=== PATIENT | female | born 1945 | race Caucasian/White ===

== ENCOUNTER 2017-10-09 05:59 | Inpatient (IN) | payer MEDICARE, OTHER ==
[~2017-10-09] VITALS: Ht 172.7 cm; Wt 84.8 kg
[2017-10-09] MEDS ORDERED: SODIUM CHLORIDE FLUSH 10ML SYR IVF ONE ×2 (06:30→09:00)
[2017-10-09 06:33] LABS: BASOPHILS # (AUTO) 0.01 x10^3/uL (0-0.1); BASOPHILS % (AUTO) 0 % (0-1); EOSINOPHILS # (AUTO) 0.02 x10^3/uL (0-0.4); EOSINOPHILS % (AUTO) 0 % (1-7); LYMPHOCYTES # (AUTO) 0.63 x10^3/uL (1-3.4); LYMPHOCYTES % (AUTO) 5 % (22-44); MD NO; MEAN CORPUSCULAR HEMOGLOBIN 29.7 pg (27.0-34.8); MEAN CORPUSCULAR HGB CONC 32.8 g/dL (32.4-35.8); MEAN CORPUSCULAR VOLUME 90.7 fL (80-100); MEAN PLATELET VOLUME 7.8 fL (7.4-10.4); MONOCYTES # (AUTO) 0.25 x10^3/uL (0.2-0.8); MONOCYTES % (AUTO) 2 % (2-9); NEUTROPHILS % (AUTO) 93 % (42-75); PLATELET COUNT 190 x10^3/uL (130-400); RED BLOOD COUNT 4.74 x10^6/uL (3.82-5.3); RED CELL DISTRIBUTION WIDTH 14.2 % (9.6-15.2)
[2017-10-09 06:44] LABS: ALANINE AMINOTRANSFERASE 40 U/L (12-78); ALBUMIN 2.3 g/dL (3.4-5.0); ANION GAP 13 mmol/L (5-15); CALCIUM 8.8 mg/dL (8.5-10.1); CHLORIDE 103 mmol/L (98-107); CREATININE 1.25 mg/dL (0.55-1.02)
[2017-10-09 06:48] LABS: ALKALINE PHOSPHATASE 285 U/L (45-117); BILIRUBIN,TOTAL 0.8 mg/dL (0.2-1.0); TOTAL PROTEIN 6.7 g/dL (6.4-8.2); TROPONIN I < 0.015 ng/mL (0.000-0.045)
[2017-10-09 06:57] LABS: INTERNATIONAL NORMALIZED RATIO 1.11 (0.93-1.1); PROTHROMBIN TIME 11.4 Seconds (9.6-11.5)
[2017-10-09] MEDS ORDERED: ONDANSETRON 2MG/ML, 2ML IVP ONE (07:00)
[2017-10-09] MEDS ORDERED: PLEASE ENTER ALLERGIES MC SCH (07:00)
[2017-10-09] MEDS ORDERED: MORPHINE SULFATE 4 MG/ML, 1ML ONE ×2 (07:19→12:35)
[2017-10-09] MEDS ORDERED: ONDANSETRON 2MG/ML, 2ML ONE (07:19)
[2017-10-09] MEDS ORDERED: POTASSIUM CHLORIDE 20 MEQ TAB.ER.PRT ONE (07:19)
[2017-10-09] MEDS ORDERED: POTASSIUM CHLORIDE 20 MEQ TAB.ER.PRT PO ONE ×2 (07:30→09:30)
[2017-10-09] MEDS ORDERED: OMNIPAQUE 350 MG/ML, 100ML BOTTLE ONE (07:41)
[2017-10-09] MEDS ORDERED: METF500T4 PO (07:49)
[2017-10-09] MEDS: MORPHINE SULFATE 4 MG/ML, 1ML IVPush PRN ×2 (07:54→12:38)
[2017-10-09] MEDS ORDERED: CEFTRIAXONE PMX 1GM/50ML 50 ML IVPB ONE (08:30)
[2017-10-09] MEDS ORDERED: AZITHROMYCIN 500 MG in SODIUM CHLORIDE 0.9% 250 ML IVPB ONE (08:30)
[2017-10-09] MEDS ORDERED: ONDANSETRON 2MG/ML, 2ML IVPush PRN (09:30)
[2017-10-09] MEDS ORDERED: CEFTRIAXONE PMX 1GM/50ML 50 ML IV SCH (09:30)
[2017-10-09] MEDS ORDERED: GUAIFENESIN/DM 200-20MG, 10ML UDC PO PRN (09:30)
[2017-10-09] MEDS ORDERED: LORazepam 1MG TABLET PO PRN (09:30)
[2017-10-09] MEDS: SENNA/DOCUSATE TABLET PO SCH (09:30)
[2017-10-09] MEDS ORDERED: DOCUSATE 100 MG CAPSULE PO PRN (09:30)
[2017-10-09] MEDS ORDERED: OXYcodone IR 5MG TABLET PO PRN (09:30)
[2017-10-09] MEDS ORDERED: POLYETHYLENE GLYCOL 17 GM PACKET PO PRN (09:30)
[2017-10-09] MEDS: INSULIN ASPART 100 UNITS/ML, PEN SQ-INSULIN SCH ×3 (11:00→21:00)
[2017-10-09] MEDS ORDERED: FUROSEMIDE 40 MG/4 ML ONE (11:31)
[2017-10-09] MEDS: FUROSEMIDE 40 MG/4 ML IV SCH ×2 (11:45→17:00)
[2017-10-09] MEDS: AZITHROMYCIN 500 MG in SODIUM CHLORIDE 0.9% 250 ML IV SCH (12:26)
[2017-10-09] MEDS ORDERED: ALBUTEROL SULFATE 2.5 MG/3 ML NPPB PRN (16:00)
[2017-10-09] MEDS: morphine SULFATE 10 MG/ML, 1ML IVPush PRN (16:23)
[2017-10-09] MEDS ORDERED: FUROSEMIDE 40 MG/4 ML IV ONE ×2 (17:00→20:30)
[2017-10-09 17:55] LABS: TROPONIN I < 0.015 ng/mL (0.000-0.045)
[2017-10-09 19:35] VITALS: BP_SYST 103; BP_SYST 89; BP_DIAS 37; BP_DIAS 51
[2017-10-09] MEDS: SODIUM CHLORIDE FLUSH 10ML SYR IVF SCH (21:00)
[2017-10-09] MEDS ORDERED: BUMETANIDE 0.25 MG/ML, 4ML IV ONE (21:00)
[2017-10-09] MEDS: FAMOTIDINE 20 MG TABLET PO SCH ×2 (21:34→21:35)
[2017-10-10] MEDS ORDERED: POTASSIUM CHLORIDE 20 MEQ TAB.ER.PRT PO ONE ×2 (01:00→09:00)
[2017-10-10] MEDS: morphine SULFATE 10 MG/ML, 1ML IVPush PRN ×2 (01:19→19:02)
[2017-10-10 01:48] VITALS: BP 108/62
[2017-10-10] MEDS: BUMETANIDE 0.25 MG/ML, 4ML IV SCH ×2 (03:00→03:15)
[2017-10-10] MEDS ORDERED: methylPREDNISolone SOD SUCC 125 MG/2 ML IVPush SCH (03:00)
[2017-10-10 03:23] LABS: MEAN CORPUSCULAR HGB CONC 33.6 g/dL (32.4-35.8); MEAN CORPUSCULAR VOLUME 89.4 fL (80-100); MEAN PLATELET VOLUME 8.1 fL (7.4-10.4); PLATELET COUNT 186 x10^3/uL (130-400); RED BLOOD COUNT 4.44 x10^6/uL (3.82-5.3); RED CELL DISTRIBUTION WIDTH 14.4 % (9.6-15.2)
[2017-10-10 03:33] LABS: INTERNATIONAL NORMALIZED RATIO 1.1 (0.93-1.1); PROTHROMBIN TIME 11.3 Seconds (9.6-11.5)
[2017-10-10 03:38] LABS: ALANINE AMINOTRANSFERASE 40 U/L (12-78); ALBUMIN 2.2 g/dL (3.4-5.0); ANION GAP 13 mmol/L (5-15); CALCIUM 8.7 mg/dL (8.5-10.1); CHLORIDE 105 mmol/L (98-107); CREATININE 1.93 mg/dL (0.55-1.02)
[2017-10-10] MEDS: METOLAZONE 10 MG TABLET PO SCH ×2 (03:40→09:23)
[2017-10-10 03:41] LABS: ALKALINE PHOSPHATASE 260 U/L (45-117); BILIRUBIN,TOTAL 0.4 mg/dL (0.2-1.0); CHOL/HDL RATIO 3.5; CHOLESTEROL, TOTAL 154 mg/dL (140-239); HDL CHOL % 29 % (28-40); HDL CHOLESTEROL (DIRECT) 44 mg/dL (40-60); LDL CHOLESTEROL,CALCULATED 76 mg/dL (54-169); LDL/HDL RATIO 1.7 (0.5-3.0); TOTAL PROTEIN 6.7 g/dL (6.4-8.2); TRIGLYCERIDES 171 mg/dL (50-200); VLDL CHOLESTEROL 34 mg/dL (0-25)
[2017-10-10 03:42] LABS: BASOPHILS # (AUTO) 0.02 x10^3/uL (0-0.1); BASOPHILS % (AUTO) 0 % (0-1); EOSINOPHILS # (AUTO) 0.02 x10^3/uL (0-0.4); EOSINOPHILS % (AUTO) 0 % (1-7); LYMPHOCYTES # (AUTO) 0.62 x10^3/uL (1-3.4); LYMPHOCYTES % (AUTO) 4 % (22-44); MD SCAN; MONOCYTES # (AUTO) 0.45 x10^3/uL (0.2-0.8); MONOCYTES % (AUTO) 3 % (2-9); NEUTROPHILS # (AUTO) 13.49 x10^3/uL (1.8-6.8); NEUTROPHILS % (AUTO) 92 % (42-75)
[2017-10-10] MEDS: INSULIN ASPART 100 UNITS/ML, PEN SQ-INSULIN SCH ×4 (07:00→21:00)
[2017-10-10 07:38] VITALS: BP 111/54
[2017-10-10] MEDS: SODIUM CHLORIDE FLUSH 10ML SYR IVF SCH ×2 (09:00→21:19)
[2017-10-10] MEDS: SENNA/DOCUSATE TABLET PO SCH (09:00)
[2017-10-10] MEDS: FAMOTIDINE 20 MG TABLET PO SCH (09:23)
[2017-10-10] MEDS: FUROSEMIDE 40 MG/4 ML IV SCH (09:23)
[2017-10-10] MEDS ORDERED: ENOXAPARIN 40 MG/0.4 ML SQ SCH (09:30)
[2017-10-10 09:39] LABS: FIO2 83 %
[2017-10-10] MEDS: ALBUTEROL/IPRATROPIUM 2.5MG/0.5MG, 3 ML NPPB SCH ×3 (10:08→20:00)
[2017-10-10] MEDS: AZITHROMYCIN 500 MG in SODIUM CHLORIDE 0.9% 250 ML IV SCH (10:14)
[2017-10-10] MEDS: ENOXAPARIN 30 MG/0.3 ML SQ SCH (10:14)
[2017-10-10] MEDS: methylPREDNISolone SOD SUCC 40 MG/ML IV SCH ×2 (10:27→21:19)
[2017-10-10] MEDS: CEFTRIAXONE 1,000 MG in DEXTROSE 5% 50 ML IV SCH (11:57)
[2017-10-10] MEDS ORDERED: FAMOTIDINE 20 MG TABLET PO SCH (21:00)
[2017-10-10] MEDS: LORazepam 2 MG/ML, 1ML IVPush PRN (21:19)
[2017-10-10] MEDS: FAMOTIDINE 20 MG/2 ML IVPush SCH (21:19)
[2017-10-10] MEDS ORDERED: methylPREDNISolone SOD SUCC 125 MG/2 ML IVPush ONE (22:00)
[2017-10-11] MEDS: LORazepam 2 MG/ML, 1ML IVPush PRN ×4 (01:13→19:41)
[2017-10-11] MEDS: morphine SULFATE 10 MG/ML, 1ML IVPush PRN ×3 (03:51→22:45)
[2017-10-11 05:00] VITALS: BP 108/55
[2017-10-11] MEDS: methylPREDNISolone SOD SUCC 40 MG/ML IV SCH ×3 (05:27→21:30)
[2017-10-11] MEDS: INSULIN ASPART 100 UNITS/ML, PEN SQ-INSULIN SCH ×4 (07:00→21:32)
[2017-10-11] MEDS: ALBUTEROL/IPRATROPIUM 2.5MG/0.5MG, 3 ML NPPB SCH ×4 (07:00→20:00)
[2017-10-11] MEDS: SENNA/DOCUSATE TABLET PO SCH (08:21)
[2017-10-11] MEDS: CEFTRIAXONE 1,000 MG in DEXTROSE 5% 50 ML IV SCH (08:35)
[2017-10-11 09:24] LABS: MEAN CORPUSCULAR HEMOGLOBIN 29.8 pg (27.0-34.8); MEAN CORPUSCULAR HGB CONC 33.1 g/dL (32.4-35.8); MEAN CORPUSCULAR VOLUME 90.1 fL (80-100); MEAN PLATELET VOLUME 7.6 fL (7.4-10.4); PLATELET COUNT 153 x10^3/uL (130-400); RED BLOOD COUNT 4.16 x10^6/uL (3.82-5.3); RED CELL DISTRIBUTION WIDTH 14.2 % (9.6-15.2)
[2017-10-11 09:26] LABS: MD YES
[2017-10-11 09:36] LABS: ANION GAP 12 mmol/L (5-15); CALCIUM 8.2 mg/dL (8.5-10.1); CHLORIDE 106 mmol/L (98-107); CREATININE 2.21 mg/dL (0.55-1.02)
[2017-10-11 09:51] LABS: BAND#(MANUAL) 0.51 x10^3/uL; BANDS%(MANUAL) 4 % (0-7); LYMPH#(MANUAL) 0.64 x10^3/uL (1-3.4); LYMPHS% (MANUAL) 5 % (22-44); MONOS#(MANUAL) 0.51 x10^3/uL (0.3-2.7); MONOS% (MANUAL) 4 % (2-9); MYELOCYTES# (MANUAL) 0.13 x10^3/uL (0-0); MYELOCYTES% (MANUAL) 1 % (0-0); SEG#(MANUAL) 10.92 x10^3/uL (1.8-6.8); SEGS% (MANUAL) 86 % (42-75)
[2017-10-11 09:52] LABS: <PLATELET ESTIMATE> ADEQUATE; <PLT MORPHOLOGY> NORMAL PLT MORPH; POLYCHROMASIA 1+
[2017-10-11] MEDS: ENOXAPARIN 30 MG/0.3 ML SQ SCH (10:04)
[2017-10-11] MEDS: SODIUM CHLORIDE FLUSH 10ML SYR IVF SCH ×2 (10:04→21:30)
[2017-10-11] MEDS: AZITHROMYCIN 500 MG in SODIUM CHLORIDE 0.9% 250 ML IV SCH (10:04)
[2017-10-11 12:16] LABS: FIO2 50 %
[2017-10-11] MEDS ORDERED: LIDOCAINE 1%, 10ML ONE (12:57)
[2017-10-11] MEDS ORDERED: VANCOMYCIN PER PHARMACY MC PRN (13:00)
[2017-10-11 13:15] LABS: MICROSCOPIC NOT IND
[2017-10-11 13:23] LABS: CREATININE,URINE RANDOM 68.8 mg/dL
[2017-10-11 13:24] LABS: CULTURE INDICATED? NO
[2017-10-11] MEDS ORDERED: PHARMACOKINETIC MONITORING MC PRN (13:30)
[2017-10-11] MEDS ORDERED: PHARMACOKINETIC CONSULTATION MC ONE (13:30)
[2017-10-11] MEDS ORDERED: VANCOMYCIN 1,700 MG in SODIUM CHLORIDE 0.9% 250 ML IV ONE (13:30)
[2017-10-11] MEDS: MEROPENEM 500 MG in SODIUM CHLORIDE 0.9% 100 ML IV SCH (16:01)
[2017-10-11] MEDS: FAMOTIDINE 20 MG/2 ML IVPush SCH (21:30)
[2017-10-12] MEDS: LORazepam 2 MG/ML, 1ML IVPush PRN ×2 (01:16→11:13)
[2017-10-12] MEDS: FLUCONAZOLE 200 MG/100 ML 100 ML IV SCH (02:50)
[2017-10-12] MEDS: INSULIN ASPART 100 UNITS/ML, PEN SQ-INSULIN SCH ×4 (04:00→22:21)
[2017-10-12] MEDS: MEROPENEM 500 MG in SODIUM CHLORIDE 0.9% 100 ML IV SCH (04:06)
[2017-10-12] MEDS: methylPREDNISolone SOD SUCC 40 MG/ML IV SCH ×3 (04:06→20:40)
[2017-10-12 04:47] VITALS: BP 119/67
[2017-10-12 05:09] LABS: BASOPHILS # (AUTO) 0.02 x10^3/uL (0-0.1); BASOPHILS % (AUTO) 0 % (0-1); EOSINOPHILS % (AUTO) 0 % (1-7); LYMPHOCYTES # (AUTO) 0.59 x10^3/uL (1-3.4); LYMPHOCYTES % (AUTO) 4 % (22-44); MD NO; MEAN CORPUSCULAR HEMOGLOBIN 29.8 pg (27.0-34.8); MEAN CORPUSCULAR VOLUME 90.5 fL (80-100); MEAN PLATELET VOLUME 7.7 fL (7.4-10.4); MONOCYTES # (AUTO) 0.53 x10^3/uL (0.2-0.8); MONOCYTES % (AUTO) 4 % (2-9); NEUTROPHILS # (AUTO) 13.13 x10^3/uL (1.8-6.8); NEUTROPHILS % (AUTO) 92 % (42-75); PLATELET COUNT 160 x10^3/uL (130-400); RED BLOOD COUNT 4.26 x10^6/uL (3.82-5.3); RED CELL DISTRIBUTION WIDTH 14.5 % (9.6-15.2)
[2017-10-12 05:19] LABS: ANION GAP 12 mmol/L (5-15); CALCIUM 8.9 mg/dL (8.5-10.1); CHLORIDE 108 mmol/L (98-107)
[2017-10-12 05:25] LABS: ALANINE AMINOTRANSFERASE 41 U/L (12-78); ALBUMIN 2.2 g/dL (3.4-5.0); ALKALINE PHOSPHATASE 282 U/L (45-117); BILIRUBIN,TOTAL 0.3 mg/dL (0.2-1.0); CREATININE 2.33 mg/dL (0.55-1.02); TOTAL PROTEIN 6.6 g/dL (6.4-8.2)
[2017-10-12] MEDS: morphine SULFATE 10 MG/ML, 1ML IVPush PRN ×2 (05:59→13:34)
[2017-10-12] MEDS: ALBUTEROL/IPRATROPIUM 2.5MG/0.5MG, 3 ML NPPB SCH ×3 (06:33→15:00)
[2017-10-12] MEDS: SENNA/DOCUSATE TABLET PO SCH (09:00)
[2017-10-12] MEDS: ENOXAPARIN 30 MG/0.3 ML SQ SCH (09:56)
[2017-10-12] MEDS: SODIUM CHLORIDE FLUSH 10ML SYR IVF SCH ×2 (09:57→20:40)
[2017-10-12] MEDS: KETOCONAZOLE CRM 2%, 15GM TP SCH ×2 (11:30→20:41)
[2017-10-12] MEDS ORDERED: ETOMIDATE 20 MG/10 ML ONE (15:31)
[2017-10-12] MEDS ORDERED: PROPOFOL 10 MG/ML, 100ML IV ONE (15:31)
[2017-10-12] MEDS: MEROPENEM 500 MG in SODIUM CHLORIDE 0.9% 50 ML IV SCH (16:27)
[2017-10-12] MEDS ORDERED: MIDAZOLAM 1 MG/ML, 5ML ONE (16:32)
[2017-10-12] MEDS ORDERED: LIDOCAINE-MPF 1%, 2ML ENDO PRN (17:30)
[2017-10-12] MEDS: ALBUTEROL/IPRATROPIUM 2.5MG/0.5MG, 3 ML INLINE SCH ×2 (18:31→22:20)
[2017-10-12] MEDS: FAMOTIDINE 20 MG/2 ML IVPush SCH (20:40)
[2017-10-13] MEDS: FLUCONAZOLE 200 MG/100 ML 100 ML IV SCH (02:13)
[2017-10-13] MEDS: ALBUTEROL/IPRATROPIUM 2.5MG/0.5MG, 3 ML INLINE SCH ×6 (02:26→22:08)
[2017-10-13] MEDS: MEROPENEM 500 MG in SODIUM CHLORIDE 0.9% 50 ML IV SCH ×2 (03:50→17:51)
[2017-10-13] MEDS: methylPREDNISolone SOD SUCC 40 MG/ML IV SCH ×3 (03:50→20:34)
[2017-10-13] MEDS: INSULIN ASPART 100 UNITS/ML, PEN SQ-INSULIN SCH ×4 (03:50→20:45)
[2017-10-13 04:20] VITALS: BP 111/60
[2017-10-13 04:20] LABS: BASOPHILS # (AUTO) 0.02 x10^3/uL (0-0.1); BASOPHILS % (AUTO) 0 % (0-1); EOSINOPHILS % (AUTO) 0 % (1-7); LYMPHOCYTES # (AUTO) 0.55 x10^3/uL (1-3.4); LYMPHOCYTES % (AUTO) 4 % (22-44); MD NO; MEAN CORPUSCULAR HEMOGLOBIN 30.2 pg (27.0-34.8); MEAN CORPUSCULAR HGB CONC 33.5 g/dL (32.4-35.8); MEAN CORPUSCULAR VOLUME 89.9 fL (80-100); MEAN PLATELET VOLUME 7.7 fL (7.4-10.4); MONOCYTES # (AUTO) 0.25 x10^3/uL (0.2-0.8); MONOCYTES % (AUTO) 2 % (2-9); NEUTROPHILS # (AUTO) 12.05 x10^3/uL (1.8-6.8); NEUTROPHILS % (AUTO) 94 % (42-75); PLATELET COUNT 153 x10^3/uL (130-400); RED CELL DISTRIBUTION WIDTH 14.4 % (9.6-15.2)
[2017-10-13 04:32] LABS: ANION GAP 15 mmol/L (5-15); CALCIUM 8.9 mg/dL (8.5-10.1); CHLORIDE 112 mmol/L (98-107); CREATININE 2.31 mg/dL (0.55-1.02)
[2017-10-13 04:34] LABS: VANCOMYCIN,RANDOM 16.5 mcg/mL
[2017-10-13] MEDS: PROPOFOL 100 ML IV PRN ×2 (04:58→23:27)
[2017-10-13] MEDS: SENNA/DOCUSATE TABLET PO SCH (08:27)
[2017-10-13] MEDS: KETOCONAZOLE CRM 2%, 15GM TP SCH ×2 (08:27→20:34)
[2017-10-13] MEDS: ENOXAPARIN 30 MG/0.3 ML SQ SCH (08:37)
[2017-10-13] MEDS ORDERED: POTASSIUM CHLORIDE 10% 40 MEQ/30 ML UDC NG ONE (09:00)
[2017-10-13] MEDS: SODIUM CHLORIDE FLUSH 10ML SYR IVF SCH ×2 (10:57→20:34)
[2017-10-13] MEDS: morphine SULFATE 10 MG/ML, 1ML IVPush PRN (11:05)
[2017-10-13] MEDS ORDERED: VANCOMYCIN 1,700 MG in SODIUM CHLORIDE 0.9% 250 ML IV ONE (14:00)
[2017-10-13] MEDS: FAMOTIDINE 20 MG/2 ML IVPush SCH (20:34)
[2017-10-13] MEDS: ACETAMINOPHEN 325 MG TABLET PO PRN (20:45)
[2017-10-13] MEDS ORDERED: SODIUM CHLORIDE 0.9%, 500ML IVBOLUS ONE (23:30)
[2017-10-14] MEDS: FLUCONAZOLE 200 MG/100 ML 100 ML IV SCH (02:12)
[2017-10-14] MEDS: ALBUTEROL/IPRATROPIUM 2.5MG/0.5MG, 3 ML INLINE SCH ×6 (02:27→22:45)
[2017-10-14] MEDS: methylPREDNISolone SOD SUCC 40 MG/ML IV SCH ×3 (03:54→21:36)
[2017-10-14] MEDS: PROPOFOL 100 ML IV PRN (03:54)
[2017-10-14] MEDS: INSULIN ASPART 100 UNITS/ML, PEN SQ-INSULIN SCH ×4 (04:05→20:15)
[2017-10-14 04:21] VITALS: BP 109/67
[2017-10-14 04:33] LABS: MEAN CORPUSCULAR HEMOGLOBIN 29.5 pg (27.0-34.8); MEAN CORPUSCULAR HGB CONC 32.9 g/dL (32.4-35.8); MEAN CORPUSCULAR VOLUME 89.5 fL (80-100); MEAN PLATELET VOLUME 8.1 fL (7.4-10.4); PLATELET COUNT 156 x10^3/uL (130-400); RED BLOOD COUNT 4.38 x10^6/uL (3.82-5.3); RED CELL DISTRIBUTION WIDTH 14.1 % (9.6-15.2)
[2017-10-14 04:47] LABS: ANION GAP 11 mmol/L (5-15); CALCIUM 8.9 mg/dL (8.5-10.1); CHLORIDE 114 mmol/L (98-107)
[2017-10-14 05:37] LABS: MD YES
[2017-10-14 05:40] LABS: BAND#(MANUAL) 0.74 x10^3/uL; BANDS%(MANUAL) 4 % (0-7); LYMPH#(MANUAL) 0.93 x10^3/uL (1-3.4); LYMPHS% (MANUAL) 5 % (22-44); NRBC % (MANUAL) 1 % (0-1); SEG#(MANUAL) 16.93 x10^3/uL (1.8-6.8); SEGS% (MANUAL) 91 % (42-75)
[2017-10-14 05:42] LABS: <PLATELET ESTIMATE> ADEQUATE; <PLT MORPHOLOGY> NORMAL PLT MORPH; POLYCHROMASIA 1+
[2017-10-14] MEDS: MEROPENEM 500 MG in SODIUM CHLORIDE 0.9% 50 ML IV SCH ×2 (05:51→18:24)
[2017-10-14] MEDS: KETOCONAZOLE CRM 2%, 15GM TP SCH ×2 (08:04→20:14)
[2017-10-14] MEDS: ACETAMINOPHEN 325 MG TABLET PO PRN (08:04)
[2017-10-14] MEDS: SENNA/DOCUSATE TABLET PO SCH (08:04)
[2017-10-14] MEDS: SODIUM CHLORIDE FLUSH 10ML SYR IVF SCH ×2 (08:06→20:12)
[2017-10-14] MEDS: ENOXAPARIN 30 MG/0.3 ML SQ SCH (08:06)
[2017-10-14] MEDS: SODIUM BICARBONATE 8.4% 100 MEQ in SODIUM CHLORIDE 0.45% 1,000 ML IV SCH (13:35)
[2017-10-14] MEDS: morphine SULFATE 10 MG/ML, 1ML IVPush PRN (19:02)
[2017-10-14] MEDS: FAMOTIDINE 20 MG/2 ML IVPush SCH (20:12)
[2017-10-15] MEDS: SODIUM BICARBONATE 8.4% 100 MEQ in SODIUM CHLORIDE 0.45% 1,000 ML IV SCH (00:27)
[2017-10-15] MEDS: PROPOFOL 100 ML IV PRN (02:31)
[2017-10-15] MEDS: FLUCONAZOLE 200 MG/100 ML 100 ML IV SCH (02:31)
[2017-10-15] MEDS: ALBUTEROL/IPRATROPIUM 2.5MG/0.5MG, 3 ML INLINE SCH ×2 (03:19→06:34)
[2017-10-15] MEDS: INSULIN ASPART 100 UNITS/ML, PEN SQ-INSULIN SCH (04:08)
[2017-10-15] MEDS: methylPREDNISolone SOD SUCC 40 MG/ML IV SCH (05:41)
[2017-10-15] MEDS: MEROPENEM 500 MG in SODIUM CHLORIDE 0.9% 50 ML IV SCH (05:42)
[2017-10-15 06:06] VITALS: BP 114/62
[2017-10-15 06:29] LABS: MEAN CORPUSCULAR HEMOGLOBIN 29.5 pg (27.0-34.8); MEAN CORPUSCULAR HGB CONC 32.4 g/dL (32.4-35.8); MEAN CORPUSCULAR VOLUME 90.9 fL (80-100); PLATELET COUNT 121 x10^3/uL (130-400); RED BLOOD COUNT 4.11 x10^6/uL (3.82-5.3); RED CELL DISTRIBUTION WIDTH 14.4 % (9.6-15.2)
[2017-10-15 06:38] LABS: ANION GAP 14 mmol/L (5-15); CALCIUM 8.4 mg/dL (8.5-10.1); CHLORIDE 113 mmol/L (98-107); CREATININE 2.54 mg/dL (0.55-1.02)
[2017-10-15 06:49] LABS: BASOPHILS # (AUTO) 0.01 x10^3/uL (0-0.1); BASOPHILS % (AUTO) 0 % (0-1); EOSINOPHILS # (AUTO) 0.01 x10^3/uL (0-0.4); EOSINOPHILS % (AUTO) 0 % (1-7); LYMPHOCYTES # (AUTO) 0.69 x10^3/uL (1-3.4); LYMPHOCYTES % (AUTO) 4 % (22-44); MD SCAN; MONOCYTES % (AUTO) 3 % (2-9); NEUTROPHILS # (AUTO) 15.95 x10^3/uL (1.8-6.8); NEUTROPHILS % (AUTO) 93 % (42-75)
[2017-10-15] MEDS: morphine SULFATE 10 MG/ML, 1ML IVPush PRN ×3 (07:36→13:54)
[2017-10-15] MEDS: KETOCONAZOLE CRM 2%, 15GM TP SCH (08:55)
[2017-10-15] MEDS: SENNA/DOCUSATE TABLET PO SCH (08:55)
[2017-10-15] MEDS ORDERED: HEPARIN 5,000 UNITS/ML, 1ML SQ SCH (09:00)
[2017-10-15] MEDS: SODIUM CHLORIDE FLUSH 10ML SYR IVF SCH (09:10)
[2017-10-15] MEDS: LORazepam 2 MG/ML, 1ML IVPush PRN ×4 (09:48→13:55)
[2017-10-15] MEDS ORDERED: ATROPINE OPHTH SOLN 1%, 5ML PO PRN (10:00)
== END 2017-10-15 15:46 | disposition expired | DRG 853 ==
LOC: ED 06:31 → EDIP 08:53 → SUATTDRO 09:00 → 4WST 13:58 → ICU 10-10 09:54 → CCU 10-10 19:54 → ICU 10-11 14:38
PROVIDERS: ADMIT Family Medicine; ATTEND Family Medicine
PROC: 0WBC3ZX Excision of Mediastinum, Percutaneous Approach, Diagnostic (ICD-10-PCS; 2017-10-09)
PROC: 5A09457 Assistance with Respiratory Ventilation, 24-96 Consecutive Hours, Continuous Positive Airway Pressure (ICD-10-PCS; 2017-10-09)
PROC: 0BJQ3ZZ Inspection of Pleura, Percutaneous Approach (ICD-10-PCS; 2017-10-11)
PROC: 0T9B70Z Drainage of Bladder with Drainage Device, Via Natural or Artificial Opening (ICD-10-PCS; 2017-10-11)
PROC: 5A1945Z Respiratory Ventilation, 24-96 Consecutive Hours (ICD-10-PCS; principal; 2017-10-12)
PROC: 0BH18EZ Insertion of Endotracheal Airway into Trachea, Via Natural or Artificial Opening Endoscopic (ICD-10-PCS; 2017-10-12)
PROC: 0BBC8ZX Excision of Right Upper Lung Lobe, Via Natural or Artificial Opening Endoscopic, Diagnostic (ICD-10-PCS; 2017-10-12)
PROC: 0B9C8ZX Drainage of Right Upper Lung Lobe, Via Natural or Artificial Opening Endoscopic, Diagnostic (ICD-10-PCS; 2017-10-12)
DX: A41.9 Sepsis, unspecified organism (principal); E43 Unspecified severe protein-calorie malnutrition; J96.21 Acute and chronic respiratory failure with hypoxia; N17.0 Acute kidney failure with tubular necrosis; Z99.11 Dependence on respirator [ventilator] status; J15.9 Unspecified bacterial pneumonia; J90 Pleural effusion, not elsewhere classified; C78.7 Secondary malignant neoplasm of liver and intrahepatic bile duct; I31.3 Pericardial effusion (noninflammatory); K50.90 Crohn's disease, unspecified, without complications; C34.90 Malignant neoplasm of unspecified part of unspecified bronchus or lung; J93.9 Pneumothorax, unspecified; J93.83 Other pneumothorax; E11.9 Type 2 diabetes mellitus without complications; Z68.28 Body mass index [BMI] 28.0-28.9, adult; E87.6 Hypokalemia; F17.210 Nicotine dependence, cigarettes, uncomplicated; I25.10 Atherosclerotic heart disease of native coronary artery without angina pectoris; I25.2 Old myocardial infarction; Z51.5 Encounter for palliative care; Z83.3 Family history of diabetes mellitus; Z95.5 Presence of coronary angioplasty implant and graft; Z99.81 Dependence on supplemental oxygen; Z66 Do not resuscitate
CPT/HCPCS: 31624; 31625; 32405; 32555; 36415; 36600; 71010; 71045; 71250; 71275; 76770; 77012; 80048; 80053; 80061; 80202; 81003; 82436; 82570; 82803; 82805; 82962; 83605; 83615; 83735; 83880; 84100; 84133; 84300; 84478; 84484; 85025; 85610; 85730; 87040; 87070; 87081; 87205; 88112; 88184; 88185; 88305; 88333; 88341; 88342; 88360; 93005; 93308; 93321; 93325; 94002; 94003; 94640; 94660; 96374; 96375; 96376; J0456; J0696; J1644; J1650; J1815; J1940; J2185; J2405; J2704; J3370; J3490; J7613; J7620; Q9967; G0461; J1450; J2060; J2270; J2920; J2930; J7040; J7050; S0028